=== PATIENT | female | born 1980 | race Caucasian/White ===

== ENCOUNTER 2017-07-01 17:30 | Emergency (ER) | payer OTHER ==
[2017-07-01 17:36] VITALS: BP 129/76; PULSE 77; TEMP 98.9; BMI 34.7
--- NOTE | 2017-07-01 17:48 | PDOC ---
History of Present Illness - General History Source: Patient - History of Present Illness Initial Comments: 07/01/17 17:55 The patient is a 37 year old female, with no significant past medical history, who presents to the emergency department with 3 weeks of dry cough with new onset of pressure to sinuses and behind eyes and generalized weakness. The patient reports her cough is non-productive and exacerbated with deep breaths. She reports a frontal headache and pressure, as well as, sinus congestion. She states her family member at bedside is sick at home also, with similar symptoms. She denies chest pain, shortness of breath, and dizziness. She denies fever, chills, nausea, vomit, diarrhea and constipation. She denies dysuria, frequency , urgency and hematuria. Allergies: NKDA Past surgical history: appendectomy <Dalia Huang - Last Filed: 07/01/17 17:55> <Flavia Aquino - Last Filed: 07/02/17 08:16> - General Chief Complaint: Respiratory Stated Complaint: COUGH Time Seen by Provider: 07/01/17 17:42 Past History <Dalia Huang - Last Filed: 07/01/17 17:55> - Past Medical History Asthma: No Cancer: No Cardiac Disorders: No COPD: No Diabetes: No HTN: No Seizures: No Thyroid Disease: No - Surgical History Appendectomy: Yes - Family Disease History Family Disease History: Heart Disease: Grandparents, Respiratory: Grandparents - Suicide/Smoking/Psychosocial Hx Smoking Status: No Smoking History: Never smoked Have you smoked in the past 12 months: No Number of Cigarettes Smoked Daily: 0 Information on smoking cessation initiated: No Hx Alcohol Use: No Drug/Substance Use Hx: No Substance Use Type: None Hx Substance Use Treatment: No <Flavia Aquino - Last Filed: 07/02/17 08:16> - Past Medical History Allergies/Adverse Reactions: Allergies Allergy/AdvReac Type Severity Reaction Status Date / Time No Known Allergies Allergy Verified 07/01/17 17:33 Home Medications: Ambulatory Orders Azithromycin [Zithromax 250mg Tablets -] 250 mg PO UTDICT #6 tab 07/01/17 Review of Systems - Review of Systems Able to Perform ROS?: Yes Comments:: 07/01/17 17:55 GENERAL/CONSTITUTIONAL: (+) generalized weakness. No fever or chills. HEAD, EYES, EARS, NOSE AND THROAT: (+) nasal congestion and sinus pressure to nose and behind eye. No change in vision. No ear pain or discharge. No sore throat. CARDIOVASCULAR: No chest pain or shortness of breath. RESPIRATORY: (+) dry cough, No wheezing, or hemoptysis. GASTROINTESTINAL: No nausea, vomiting, diarrhea or constipation. GENITOURINARY: No dysuria, frequency, or change in urination. MUSCULOSKELETAL: No joint or muscle swelling or pain. No neck or back pain. SKIN: No rash NEUROLOGIC:(+) frontal headache, No vertigo, loss of consciousness, or change in strength/sensation. ENDOCRINE: No increased thirst. No abnormal weight change. HEMATOLOGIC/LYMPHATIC: No anemia, easy bleeding, or history of blood clots. ALLERGIC/IMMUNOLOGIC: No hives or skin allergy. <Dalia Huang - Last Filed: 07/01/17 17:55> *Physical Exam - Vital Signs Last Vital Signs Temp Pulse Resp BP Pulse Ox 98.9 F 77 18 129/76 98 07/01/17 17:30 07/01/17 17:30 07/01/17 17:30 07/01/17 17:30 07/01/17 17:30 - Physical Exam Comments: 07/01/17 17:56 GENERAL: Awake, alert, and fully oriented, in no acute distress HEAD: No signs of trauma EYES: PERRLA, EOMI, sclera anicteric, conjunctiva clear ENT: Auricles normal inspection, hearing grossly normal, nares patent, oropharynx clear without exudates. Moist mucosa NECK: Normal ROM, supple, no lymphadenopathy, JVD, or masses LUNGS: Breath sounds equal, clear to auscultation bilaterally. No wheezes, and no crackles HEART: Regular rate and rhythm, normal S1 and S2, no murmurs, rubs or gallops ABDOMEN: Soft, nontender, normoactive bowel sounds. No guarding, no rebound. No masses EXTREMITIES: Normal range of motion, no edema. No clubbing or cyanosis. No cords, erythema, or tenderness NEUROLOGICAL: Cranial nerves II through XII grossly intact. Normal speech, normal gait SKIN: Warm, Dry, normal turgor, no rashes or lesions noted. <Dalia Huang - Last Filed: 07/01/17 17:55> - Vital Signs Last Vital Signs Temp Pulse Resp BP Pulse Ox 98.9 F 77 18 129/76 98 07/01/17 17:30 07/01/17 17:30 07/01/17 17:30 07/01/17 17:30 07/01/17 17:30 <Flavia Aquino - Last Filed: 07/02/17 08:16> Medical Decision Making - Medical Decision Making Will treat with abx based on 3 week history of cough- loose and hacking in ED. Will treat with abx based on duration of symptoms without improvement. <Flavia Aquino - Last Filed: 07/02/17 08:16> *DC/Admit/Observation/Transfer - Attestations Scribe Attestion: 07/01/17 17:56 Documentation prepared by Dalia Huang, acting as lead medical technologist for Flavia Aquino MD <Dalia Huang - Last Filed: 07/01/17 17:55> - Discharge Dispostion Admit: No <Flavia Aquino - Last Filed: 07/02/17 08:16> Diagnosis at time of Disposition: Cough, Bronchitis - Discharge Dispostion Disposition: HOME Condition at time of disposition: Stable - Prescriptions Prescriptions: Azithromycin [Zithromax 250mg Tablets -] 250 mg PO UTDICT #6 tab - Patient Instructions Printed Discharge Instructions: DI for Acute Bronchitis
[2017-07-01] MEDS ORDERED: ALBUTEROL SO4 0.083% IH SOL 2.5 MG/3 ML VIAL.NEB. NEB ONE ×2 (17:50→17:53)
== END 2017-07-01 18:55 | disposition home or self-care (01) ==
LOC: FER 17:30
PROC: 3E0F7GC Introduction of Other Therapeutic Substance into Respiratory Tract, Via Natural or Artificial Opening (ICD-10-PCS; principal; 2017-07-01)
DX: J40 Bronchitis, not specified as acute or chronic (principal); R05 Cough
CPT/HCPCS: 71046-TC; 84703; 99283-25

== ENCOUNTER 2022-01-06 17:38 | Emergency (ER) | payer OTHER ==
[2022-01-06 17:58] VITALS: BP 124/76; PULSE 75; TEMP 98.7; BMI 33.6
[2022-01-06] MEDS ORDERED: LIDOCAINE HCL 1%, 10 MG/ML (20ML VIAL) ONE (18:04)
[2022-01-06] MEDS ORDERED: DIPHTH,PERTUSS(ACELL),TET 0.5 ML DISP.SYRIN IM ONE ×2 (19:00→19:01)
== END 2022-01-06 19:13 | disposition home or self-care (01) ==
LOC: FER 17:38
PROC: 0HQFXZZ Repair Right Hand Skin, External Approach (ICD-10-PCS; principal; 2022-01-06)
PROC: 3E0234Z Introduction of Serum, Toxoid and Vaccine into Muscle, Percutaneous Approach (ICD-10-PCS; 2022-01-06)
DX: S61.216A Laceration without foreign body of right little finger without damage to nail, initial encounter (principal); W26.8XXA Contact with other sharp object(s), not elsewhere classified, initial encounter
CPT/HCPCS: 12002; 90471; 90715; 99282-25

== ENCOUNTER 2022-01-16 15:54 | Emergency (ER) | payer OTHER ==
[2022-01-16 16:13] VITALS: BP 139/93; PULSE 73; RESP 20; TEMP 98.3; BMI 33.6
== END 2022-01-16 16:20 | disposition home or self-care (01) ==
LOC: FER 15:54
DX: Z48.02 Encounter for removal of sutures (principal)
CPT/HCPCS: 99281-25